=== PATIENT | female | born 1950 | race Two or more races ===

== ENCOUNTER 2019-07-25 20:43 | Inpatient (IN) | payer SELFPAY ==
[~2019-07-25] VITALS: Ht 162.6 cm; Wt 66.7 kg
[~2019-07-25 20:43] MED LIST: AMLO5TAB10 PO; ATOR10TA60 PO; LOSA25TA54 PO
[2019-07-25 21:07] LABS: BILIRUBIN,URINE NEGATIVE (NEG); CLARITY,URINE CLEAR; COLOR,URINE YELLOW; NITRITE,URINE NEGATIVE (NEG); PH,URINE 5.5; PROTEIN,URINE >=300 mg/dL (NEG-TRACE); UROBILINOGEN,URINE 0.2 mg/dL (0.2 mg/dL)
[2019-07-25 21:12] LABS: BACTERIA,URINE 0 /HPF (0-FEW); SQUAMOUS EPITHELIAL CELL,UR FEW /LPF
[2019-07-25 21:13] LABS: RBC,URINE OCC /HPF (0-2)
[2019-07-25 21:14] LABS: YEAST,URINE PRESENT /HPF
[2019-07-25 21:26] LABS: BASO # 0.1 x10^3/uL (0.0-0.2); BASO % 1 % (0-3); EOS # 0.1 x10^3/uL (0.0-0.7); EOS % 1 % (0-3); HEMATOCRIT 45.8 % (36.0-47.0); HEMOGLOBIN 15.7 g/dL (12.0-15.5); LYMPH # 1.4 x10^3/uL (1.0-4.8); LYMPH % 12 % (24-48); MEAN CORPUSCULAR HEMOGLOBIN 31 pg (25-35); MEAN CORPUSCULAR HGB CONC 34 g/dL (31-37); MEAN CORPUSCULAR VOLUME 90 fL (79-100); MONO # 0.9 x10^3/uL (0.0-1.1); MONO % 8 % (0-9); NEUT # 8.8 x10^3/uL (1.8-7.7); NEUT % 79 % (31-73); PLATELET COUNT 304 x10^3/uL (140-400); RED BLOOD COUNT 5.12 x10^6/uL (3.50-5.40); RED CELL DISTRIBUTION WIDTH 12.6 % (11.5-14.5); WHITE BLOOD COUNT 11.2 x10^3/uL (4.0-11.0)
[2019-07-25] MEDS ORDERED: NYSTATIN 100,000 UNIT/GM TOPICAL CREAM 15GM TUBE. TP ONE (21:30)
[2019-07-25 21:40] LABS: ALBUMIN 3.2 g/dL (3.4-5.0); ALBUMIN/GLOBULIN RATIO 0.9 (1.0-1.7); CALCIUM 9.6 mg/dL (8.5-10.1); CREATININE 1.1 mg/dL (0.6-1.0); GFR 49.1; POTASSIUM 4.2 mmol/L (3.5-5.1); TOTAL BILIRUBIN 0.3 mg/dL (0.2-1.0); TOTAL PROTEIN 6.7 g/dL (6.4-8.2)
[2019-07-25] MEDS ORDERED: INSULIN REGULAR 100 UNIT/ML 3ML VIAL. IV ONE (22:15)
[2019-07-25] MEDS ORDERED: IV NORMAL SALINE 1000ML BAG 1,000 ML IV ONE (22:15)
--- NOTE | 2019-07-25 23:58 | PHYS DOC ---
Past Medical History Past Medical History: Diabetes-Type II, High Cholesterol, Hypertension Past Surgical History: Pacemaker, Other Additional Past Surgical Histo: left ankle surgery Alcohol Use: None Drug Use: None Adult General Chief Complaint Chief Complaint: PELVIC PAIN HPI HPI Patient is a 69-year-old female who presents with report of pain in her lower abdomen, stating that she has had a rash in her pelvic region for the last several days. Patient does indicate that she is a diabetic and is not on any insulin. She does not have a primary care doctor and she is not sure how high her blood sugars have been running. She denies any chest pain or shortness of breath. She also denies any fever. She rates the pain in her lower abdomen as moderate. She denies any nausea, vomiting or diarrhea.[] Review of Systems Review of Systems Constitutional: Denies fever or chills [] Respiratory: Denies cough or shortness of breath [] Cardiovascular: No additional information not addressed in HPI [] GI: Denies abdominal pain, nausea, vomiting or diarrhea [] Integument: Positive rash in the lower abdomen/pelvic region[] Neurologic: Denies headache, focal weakness or sensory changes [] All other systems were reviewed and found to be within normal limits, except as documented in this note. Current Medications Current Medications Current Medications Medications (Trade) Dose Ordered Sig/Gracy Start Time Stop Time Status Last Admin Dose Admin Insulin Human Regular (HumuLIN R VIAL) 15 unit 1X ONCE 07/25/19 22:15 07/25/19 22:16 DC 07/25/19 22:22 15 UNIT Nystatin (Mycostatin) 1 gregor 1X ONCE 07/25/19 21:30 07/25/19 21:31 DC 07/25/19 21:45 1 GREGOR Sodium Chloride 1,000 ml @ 1,000 mls/hr 1X ONCE 07/25/19 22:15 07/25/19 23:14 DC 07/25/19 22:21 1,000 MLS/HR Allergies Allergies Allergies Coded Allergies Type Severity Reaction Last Updated Verified No Known Drug Allergies 11/22/13 No Physical Exam Physical Exam Constitutional: Well developed, well nourished, no acute distress, non-toxic appearance. [] HENT: Normocephalic, atraumatic, bilateral external ears normal, oropharynx moist, no oral exudates, nose normal. [] Eyes: PERRLA, EOMI, conjunctiva normal, no discharge. [] Neck: Normal range of motion, no tenderness, supple, no stridor. [] Cardiovascular: Regular rate and rhythm[] Lungs & Thorax: Bilateral breath sounds clear to auscultation [] Abdomen: Bowel sounds normal, soft, with erythematous rash in the skin fold of the lower abdomen and pelvic region with numerous excoriations, consistent with cutaneous candidal infection. [] Skin: Warm, dry. [] Extremities: No tenderness, no cyanosis, no clubbing, ROM intact, no edema. [] Neurologic: Alert and oriented X 3, no focal deficits noted. [] Current Patient Data Vital Signs Vital Signs Date Time Temp Pulse Resp B/P (MAP) Pulse Ox O2 Delivery O2 Flow Rate FiO2 07/25/19 23:00 82 17 156/78 (104) 97 Room Air 07/25/19 20:50 98.1 98.1 Lab Values Laboratory Tests Test 07/25/19 20:48 07/25/19 21:10 Urine Collection Type Unknown Urine Color Yellow Urine Clarity Clear Urine pH 5.5 Urine Specific [place] >=1.030 Urine Protein >=300 mg/dL (NEG-TRACE) Urine Glucose (UA) >=1000 mg/dL (NEG) Urine Ketones (Stick) Negative mg/dL (NEG) Urine Blood Negative (NEG) Urine Nitrite Negative (NEG) Urine Bilirubin Negative (NEG) Urine Urobilinogen Dipstick 0.2 mg/dL (0.2 mg/dL) Urine Leukocyte Esterase Negative (NEG) Urine RBC Occ /HPF (0-2) Urine WBC 5-10 /HPF (0-4) Urine Squamous Epithelial Cells Few /LPF Urine Bacteria 0 /HPF (0-FEW) Urine Yeast Present /HPF White Blood Count 11.2 x10^3/uL (4.0-11.0) H Red Blood Count 5.12 x10^6/uL (3.50-5.40) Hemoglobin 15.7 g/dL (12.0-15.5) H Hematocrit 45.8 % (36.0-47.0) Mean Corpuscular Volume 90 fL (79-100) Mean Corpuscular Hemoglobin 31 pg (25-35) Mean Corpuscular Hemoglobin Concent 34 g/dL (31-37) Red Cell Distribution Width 12.6 % (11.5-14.5) Platelet Count 304 x10^3/uL (140-400) Neutrophils (%) (Auto) 79 % (31-73) H Lymphocytes (%) (Auto) 12 % (24-48) L Monocytes (%) (Auto) 8 % (0-9) Eosinophils (%) (Auto) 1 % (0-3) Basophils (%) (Auto) 1 % (0-3) Neutrophils # (Auto) 8.8 x10^3/uL (1.8-7.7) H Lymphocytes # (Auto) 1.4 x10^3/uL (1.0-4.8) Monocytes # (Auto) 0.9 x10^3/uL (0.0-1.1) Eosinophils # (Auto) 0.1 x10^3/uL (0.0-0.7) Basophils # (Auto) 0.1 x10^3/uL (0.0-0.2) Sodium Level 134 mmol/L (136-145) L Potassium Level 4.2 mmol/L (3.5-5.1) Chloride Level 96 mmol/L (98-107) L Carbon Dioxide Level 29 mmol/L (21-32) Anion Gap 9 (6-14) Blood Urea Nitrogen 21 mg/dL (7-20) H Creatinine 1.1 mg/dL (0.6-1.0) H Estimated GFR (Cockcroft-Gault) 49.1 BUN/Creatinine Ratio 19 (6-20) Glucose Level 643 mg/dL (70-99) *H Calcium Level 9.6 mg/dL (8.5-10.1) Total Bilirubin 0.3 mg/dL (0.2-1.0) Aspartate Amino Transferase (AST) 9 U/L (15-37) L Alanine Aminotransferase (ALT) 14 U/L (14-59) Alkaline Phosphatase 181 U/L (46-116) H Total Protein 6.7 g/dL (6.4-8.2) Albumin 3.2 g/dL (3.4-5.0) L Albumin/Globulin Ratio 0.9 (1.0-1.7) L Laboratory Tests 07/25/19 21:10 Laboratory Tests 07/25/19 21:10 EKG EKG [] Radiology/Procedures Radiology/Procedures [] Course & Med Decision Making Course & Med Decision Making Pertinent Labs and Imaging studies reviewed. (See chart for details) [] Dragon Disclaimer Dragon Disclaimer This electronic medical record was generated, in whole or in part, using a voice recognition dictation system. Departure Departure Impression: Primary Impression: Uncontrolled type II diabetes mellitus Additional Impression: Cutaneous candidiasis Disposition: ADMITTED INPATIENT Admitting Physician: MARIE (Dr. Daigle) Condition: IMPROVED Referrals: NO PCP (PCP) Problem Qualifiers Primary Impression: Uncontrolled type II diabetes mellitus Glycemic state: with hyperglycemia Qualified Codes: E11.65 - Type 2 diabetes mellitus with hyperglycemia GENEVIEVE THIBODEAUX Jr. DO Jul 25, 2019 23:58
[2019-07-26] VITALS (7 sets, daily range): BP systolic 141–153; BP diastolic 68–83
[2019-07-26] MEDS ORDERED: ONDANSETRON PF 4 MG/2 ML VIAL. IV PRN
[2019-07-26] MEDS ORDERED: MORPHINE SULFATE 2 MG/ML VIAL. IV PRN
[2019-07-26] MEDS ORDERED: IV NORMAL SALINE 1000ML BAG 1,000 ML IV SCH (00:30)
[2019-07-26 07:08] LABS: BASO # 0.1 x10^3/uL (0.0-0.2); BASO % 1 % (0-3); EOS # 0.2 x10^3/uL (0.0-0.7); EOS % 2 % (0-3); HEMATOCRIT 40.6 % (36.0-47.0); LYMPH # 1.9 x10^3/uL (1.0-4.8); LYMPH % 21 % (24-48); MEAN CORPUSCULAR HEMOGLOBIN 31 pg (25-35); MEAN CORPUSCULAR HGB CONC 35 g/dL (31-37); MEAN CORPUSCULAR VOLUME 89 fL (79-100); MONO # 0.8 x10^3/uL (0.0-1.1); MONO % 8 % (0-9); NEUT # 6.4 x10^3/uL (1.8-7.7); NEUT % 69 % (31-73); PLATELET COUNT 272 x10^3/uL (140-400); RED BLOOD COUNT 4.56 x10^6/uL (3.50-5.40); RED CELL DISTRIBUTION WIDTH 12.8 % (11.5-14.5); WHITE BLOOD COUNT 9.3 x10^3/uL (4.0-11.0)
[2019-07-26 07:25] LABS: CALCIUM 8.5 mg/dL (8.5-10.1); CREATININE 0.7 mg/dL (0.6-1.0); GFR 82.7; POTASSIUM 3.4 mmol/L (3.5-5.1)
[2019-07-26] MEDS ORDERED: FLU VAX QS 2019-20 (36MOS+)/PF 0.5 ML SYRINGE. VAX IM ONE (09:00)
[2019-07-26] MEDS ORDERED: POTASSIUM CHLORIDE 20 MEQ TABLET.ER. PO ONE (09:00)
--- NOTE | 2019-07-26 09:01 | PDOC1 ---
History and Physical Date of Admission Date of Admission DATE: 07/26/19 TIME: 08:57 History of Present Illness History of Present Illness Ms Ash is a 69-year-old female italian-speaking only w/ PMHx PPM, Diabetes- Type II, High Cholesterol, Hypertension who presents with report of pain in her lower abdomen, stating that she has had a rash in her pelvic region for the last several days. Tablet Technician phone utilized [employer] [phone]. Patient and product safety engineer had to repeat themselves frequently. Patient unclear about whether she knows about diabetes as a diagnosis or not and is asking to go home. Glucose was 643. WBC 11.2. Cr 1.1. She denies any chest pain or shortness of breath. She also denies any fever. She rates the pain in her lower abdomen as moderate. She denies any nausea, vomiting or diarrhea Past Medical History Cardiovascular: CAD, HTN, Hyperlipidemia Psych: Depression Past Surgical History Past Surgical History: Hysterectomy Family History Family History: Diabetes, High Cholestrol, Hypertension Social History Smoke: No ALCOHOL: none Drugs: None Current Problem List Problem List Problems Medical Problems: (1) Cutaneous candidiasis Status: Acute (2) Uncontrolled type II diabetes mellitus Status: Acute Current Medications Current Medications Current Medications Nystatin (Mycostatin) 1 gregor 1X ONCE TP Last administered on 07/25/19at 21:45; Start 07/25/19 at 21:30; Stop 07/25/19 at 21:31; Status DC Insulin Human Regular (HumuLIN R VIAL) 15 unit 1X ONCE IV Last administered on 07/25/19at 22:22; Start 07/25/19 at 22:15; Stop 07/25/19 at 22:16; Status DC Sodium Chloride 1,000 ml @ 1,000 mls/hr 1X ONCE IV Last administered on 07/25/19at 22:21; Start 07/25/19 at 22:15; Stop 07/25/19 at 23:14; Status DC Ondansetron HCl (Zofran) 4 mg PRN Q8HRS PRN IV NAUSEA/VOMITING 1ST CHOICE; Sta rt 07/26/19 at 00:00; Stop 07/26/19 at 23:59 Morphine Sulfate (Morphine Sulfate) 2 mg PRN Q2HR PRN IV SEVERE PAIN 7-10; Start 07/26/19 at 00:00; Stop 07/26/19 at 23:59 Sodium Chloride 1,000 ml @ 125 mls/hr Q8H IV Last administered on 07/26/19at 01:20; Start 07/26/19 at 00:30; Stop 07/26/19 at 00:31; Status DC Influenza Virus Vaccine Quadrival ([place] Quad 2019-20 (3yr Up) Syringe) 0.5 ml ONCE ONCE VAX IM ; Start 07/26/19 at 09:00; Stop 07/26/19 at 09:01 Active Scripts Active Reported Amlodipine Besylate 5 Mg Tablet 5 Mg PO DAILY Atorvastatin Calcium 10 Mg Tablet 10 Mg PO QHS Losartan Potassium (Losartan Potassium) 25 Mg Tablet 25 Mg PO BID Allergies Allergies: Coded Allergies: No Known Drug Allergies (Unverified , 11/22/13) ROS General: No: Chills, Night Sweats, Fatigue, Malaise, Appetite, Other PSYCHOLOGICAL ROS: No: Anxiety, Behavioral Disorder, Concentration difficultie, Decreased libido, Depression, Disorientation, Hallucinations, Hostility, Irritablity, Memory difficulties, Mood Swings, Obsessive thoughts, Physical abuse, Sexual abuse, Sleep disturbances, Suicidal ideation, Other Eyes: No Blurry vision, No Decreased vision, No Double vision, No Dry eyes, No Excessive tearing, No Eye Pain, No Itchy Eyes, No Loss of vision, No Photophobia, No Scotomata, No Uses contacts, No Uses glasses, No Other HEENT: No: Heacaches, Visual Changes, Hearing change, Nasal congestion, Nasal discharge, Oral lesions, Sinus pain, Sore Throat, Epistaxis, Sneezing, Snoring, Tinnitus, Vertigo, Vocal changes, Other ALLERGY AND IMMUNOLOGY: No: Hives, Insect Bite Sensitivity, Itchy/Watery Eyes, Nasal Congestion, Post Nasal Drip, Seasonal Allergies, Other Hematological and Lymphatic: No: Bleeding Problems, Blood Clots, Blood Transfusions, Brusing, Night Sweats, Pallor, Swollen Lymph Nodes, Other ENDOCRINE: No: Breast Changes, Galactorrhea, Hair Pattern Changes, Hot Flashes, Malaise/lethargy, Mood Swings, Palpitations, Polydipsia/polyuria, Skin Changes, Temperature Intolerance, Unexpected Weight Changes, Other Breast: No New/Changing Breast Lumps, No Nipple changes, No Nipple discharge, No Other Respiratory: No: Cough, Hemoptysis, Orthopnea, Pleuritic Pain, Shortness of breath, SOB with excertion, Sputum Changes, Stridor, Tachypnea, Wheezing, Other Cardiovascular: No Chest Pain, No Palpitations, No Orthopnea, No Paroxysmal Noc. Dyspnea, No Edema, No Lt Headedness, No Other Gastrointestinal: Yes Nausea, Yes Abdominal Pain; No Vomiting, No Diarrhea, No Constipation, No Melena, No Hematochezia, No Other Genitourinary: YES Frequency; No Dysuria, No Incontinence, No Hematuria, No Retention, No Discharge, No Urgency, No Pain, No Flank Pain, No Other, No , No , No , No , No , No , No Musculoskeletal: No Gait Disturbance, No Joint Pain, No Joint Stiffness, No Joint Swelling, No Muscle Pain, No Muscular Weakness, No Pain In:, No Swelling In:, No Other Neurological: No Behavorial Changes, No Bowel/Bladder ControlChng, No Confusion, No Dizziness, No Gait Disturbance, No Headaches, No Impaired Coord/balance, No Memory Loss, No Numbness/Tingling, No Seizures, No Speech Problems, No Tremors, No Visual Changes, No Weakness, No Other Skin: No Dry Skin, No Eczema, No Hair Changes, No Lumps, No Mole Changes, No Mottling, No Nail Changes, No Pruritus, No Rash, No Skin Lesion Changes, No Other, No Acne Physical Exam General: Alert, Oriented X3, Cooperative, No acute distress HEENT: Atraumatic, PERRLA, EOMI, Mucous membr. moist/pink Lungs: Clear to auscultation, Normal air movement Heart: S1S2, RRR, no gallops, no murmurs Abdomen: Normal bowel sounds, Soft, No tenderness, No hepatosplenomegaly, No masses, Other (Intertrigo) Rectal Exam: not examined Extremities: No clubbing, No cyanosis, No edema, Normal pulses, No tenderness/swelling Skin: No significant lesion, Other (Groin and pannicular) Neuro: Normal gait, Normal speech, Strength at 5/5 X4 ext, Normal tone, Sensation intact, Cranial nerves 3-12 NL, Reflexes 2+ Psych/Mental Status: Mental status NL, Mood NL Vitals Vitals Vital Signs Date Time Temp Pulse Resp B/P (MAP) Pulse Ox O2 Delivery O2 Flow Rate FiO2 07/26/19 07:00 98.0 79 18 153/71 (98) 95 Room Air 98.0 Labs Labs Laboratory Tests Test 07/25/19 20:48 07/25/19 21:10 07/25/19 23:45 07/26/19 05:19 Urine Collection Type Unknown Urine Color Yellow Urine Clarity Clear Urine pH 5.5 Urine Specific [place] >=1.030 Urine Protein >=300 mg/dL (NEG-TRACE) Urine Glucose (UA) >=1000 mg/dL (NEG) Urine Ketones (Stick) Negative mg/dL (NEG) Urine Blood Negative (NEG) Urine Nitrite Negative (NEG) Urine Bilirubin Negative (NEG) Urine Urobilinogen Dipstick 0.2 mg/dL (0.2 mg/dL) Urine Leukocyte Esterase Negative (NEG) Urine RBC Occ /HPF (0-2) Urine WBC 5-10 /HPF (0-4) Urine Squamous Epithelial Cells Few /LPF Urine Bacteria 0 /HPF (0-FEW) Urine Yeast Present /HPF White Blood Count 11.2 x10^3/uL (4.0-11.0) 9.3 x10^3/uL (4.0-11.0) Red Blood Count 5.12 x10^6/uL (3.50-5.40) 4.56 x10^6/uL (3.50-5.40) Hemoglobin 15.7 g/dL (12.0-15.5) 14.0 g/dL (12.0-15.5) Hematocrit 45.8 % (36.0-47.0) 40.6 % (36.0-47.0) Mean Corpuscular Volume 90 fL (79-100) 89 fL (79-100) Mean Corpuscular Hemoglobin 31 pg (25-35) 31 pg (25-35) Mean Corpuscular Hemoglobin Concent 34 g/dL (31-37) 35 g/dL (31-37) Red Cell Distribution Width 12.6 % (11.5-14.5) 12.8 % (11.5-14.5) Platelet Count 304 x10^3/uL (140-400) 272 x10^3/uL (140-400) Neutrophils (%) (Auto) 79 % (31-73) 69 % (31-73) Lymphocytes (%) (Auto) 12 % (24-48) 21 % (24-48) Monocytes (%) (Auto) 8 % (0-9) 8 % (0-9) Eosinophils (%) (Auto) 1 % (0-3) 2 % (0-3) Basophils (%) (Auto) 1 % (0-3) 1 % (0-3) Neutrophils # (Auto) 8.8 x10^3/uL (1.8-7.7) 6.4 x10^3/uL (1.8-7.7) Lymphocytes # (Auto) 1.4 x10^3/uL (1.0-4.8) 1.9 x10^3/uL (1.0-4.8) Monocytes # (Auto) 0.9 x10^3/uL (0.0-1.1) 0.8 x10^3/uL (0.0-1.1) Eosinophils # (Auto) 0.1 x10^3/uL (0.0-0.7) 0.2 x10^3/uL (0.0-0.7) Basophils # (Auto) 0.1 x10^3/uL (0.0-0.2) 0.1 x10^3/uL (0.0-0.2) Sodium Level 134 mmol/L (136-145) 142 mmol/L (136-145) Potassium Level 4.2 mmol/L (3.5-5.1) 3.4 mmol/L (3.5-5.1) Chloride Level 96 mmol/L (98-107) 108 mmol/L (98-107) Carbon Dioxide Level 29 mmol/L (21-32) 30 mmol/L (21-32) Anion Gap 9 (6-14) 4 (6-14) Blood Urea Nitrogen 21 mg/dL (7-20) 17 mg/dL (7-20) Creatinine 1.1 mg/dL (0.6-1.0) 0.7 mg/dL (0.6-1.0) Estimated GFR (Cockcroft-Gault) 49.1 82.7 BUN/Creatinine Ratio 19 (6-20) Glucose Level 643 mg/dL (70-99) 315 mg/dL (70-99) Calcium Level 9.6 mg/dL (8.5-10.1) 8.5 mg/dL (8.5-10.1) Total Bilirubin 0.3 mg/dL (0.2-1.0) Aspartate Amino Transf (AST/SGOT) 9 U/L (15-37) Alanine Aminotransferase (ALT/SGPT) 14 U/L (14-59) Alkaline Phosphatase 181 U/L (46-116) Total Protein 6.7 g/dL (6.4-8.2) Albumin 3.2 g/dL (3.4-5.0) Albumin/Globulin Ratio 0.9 (1.0-1.7) Glucose (Fingerstick) 265 mg/dL (70-99) Test 07/26/19 07:35 Glucose (Fingerstick) 278 mg/dL (70-99) Laboratory Tests Test 07/25/19 20:48 07/25/19 21:10 07/25/19 23:45 07/26/19 05:19 Urine Collection Type Unknown Urine Color Yellow Urine Clarity Clear Urine pH 5.5 Urine Specific [place] >=1.030 Urine Protein >=300 mg/dL (NEG-TRACE) Urine Glucose (UA) >=1000 mg/dL (NEG) Urine Ketones (Stick) Negative mg/dL (NEG) Urine Blood Negative (NEG) Urine Nitrite Negative (NEG) Urine Bilirubin Negative (NEG) Urine Urobilinogen Dipstick 0.2 mg/dL (0.2 mg/dL) Urine Leukocyte Esterase Negative (NEG) Urine RBC Occ /HPF (0-2) Urine WBC 5-10 /HPF (0-4) Urine Squamous Epithelial Cells Few /LPF Urine Bacteria 0 /HPF (0-FEW) Urine Yeast Present /HPF White Blood Count 11.2 x10^3/uL (4.0-11.0) 9.3 x10^3/uL (4.0-11.0) Red Blood Count 5.12 x10^6/uL (3.50-5.40) 4.56 x10^6/uL (3.50-5.40) Hemoglobin 15.7 g/dL (12.0-15.5) 14.0 g/dL (12.0-15.5) Hematocrit 45.8 % (36.0-47.0) 40.6 % (36.0-47.0) Mean Corpuscular Volume 90 fL (79-100) 89 fL (79-100) Mean Corpuscular Hemoglobin 31 pg (25-35) 31 pg (25-35) Mean Corpuscular Hemoglobin Concent 34 g/dL (31-37) 35 g/dL (31-37) Red Cell Distribution Width 12.6 % (11.5-14.5) 12.8 % (11.5-14.5) Platelet Count 304 x10^3/uL (140-400) 272 x10^3/uL (140-400) Neutrophils (%) (Auto) 79 % (31-73) 69 % (31-73) Lymphocytes (%) (Auto) 12 % (24-48) 21 % (24-48) Monocytes (%) (Auto) 8 % (0-9) 8 % (0-9) Eosinophils (%) (Auto) 1 % (0-3) 2 % (0-3) Basophils (%) (Auto) 1 % (0-3) 1 % (0-3) Neutrophils # (Auto) 8.8 x10^3/uL (1.8-7.7) 6.4 x10^3/uL (1.8-7.7) Lymphocytes # (Auto) 1.4 x10^3/uL (1.0-4.8) 1.9 x10^3/uL (1.0-4.8) Monocytes # (Auto) 0.9 x10^3/uL (0.0-1.1) 0.8 x10^3/uL (0.0-1.1) Eosinophils # (Auto) 0.1 x10^3/uL (0.0-0.7) 0.2 x10^3/uL (0.0-0.7) Basophils # (Auto) 0.1 x10^3/uL (0.0-0.2) 0.1 x10^3/uL (0.0-0.2) Sodium Level 134 mmol/L (136-145) 142 mmol/L (136-145) Potassium Level 4.2 mmol/L (3.5-5.1) 3.4 mmol/L (3.5-5.1) Chloride Level 96 mmol/L (98-107) 108 mmol/L (98-107) Carbon Dioxide Level 29 mmol/L (21-32) 30 mmol/L (21-32) Anion Gap 9 (6-14) 4 (6-14) Blood Urea Nitrogen 21 mg/dL (7-20) 17 mg/dL (7-20) Creatinine 1.1 mg/dL (0.6-1.0) 0.7 mg/dL (0.6-1.0) Estimated GFR (Cockcroft-Gault) 49.1 82.7 BUN/Creatinine Ratio 19 (6-20) Glucose Level 643 mg/dL (70-99) 315 mg/dL (70-99) Calcium Level 9.6 mg/dL (8.5-10.1) 8.5 mg/dL (8.5-10.1) Total Bilirubin 0.3 mg/dL (0.2-1.0) Aspartate Amino Transf (AST/SGOT) 9 U/L (15-37) Alanine Aminotransferase (ALT/SGPT) 14 U/L (14-59) Alkaline Phosphatase 181 U/L (46-116) Total Protein 6.7 g/dL (6.4-8.2) Albumin 3.2 g/dL (3.4-5.0) Albumin/Globulin Ratio 0.9 (1.0-1.7) Glucose (Fingerstick) 265 mg/dL (70-99) Test 07/26/19 07:35 Glucose (Fingerstick) 278 mg/dL (70-99) VTE Prophylaxis Ordered VTE Prophylaxis Devices: Yes VTE Pharmacological Prophylaxi: Yes Assessment/Plan Assessment/Plan A/P: Abdominal pain - this is intertrigo with possible mild associated cellulitis. Will give doxycycline. Topical nystatin and 1x IV diflucan Abdominal cellulitis - will treat as above Hyperglycemia - with type 2 diabetes. She is not taking anything for this and having difficulty with product safety engineer as she states she does not have diabetes. Basal bolus plus insulin while in house Sick sinus syndrome s/p PPM - noted historically, no cardiac issues currently High Cholesterol - will cont statin, goal LDL < 70mg/dL Hypertension - will treat FEN - ADA diet PPX - lovenox FULL CODE Dispo - inpatient for acute abdominal wall cellulitis. May be able to d/c in next 24-48 hours JEFF HORNER MD Jul 26, 2019 09:01
[2019-07-26] MEDS ORDERED: DEXTROSE 50% 25 GM / 50ML DISP.SYRIN. IV PRN (10:00)
[2019-07-26] MEDS: LOSARTAN POTASSIUM 25 MG TABLET. PO SCH ×2 (10:38→23:36)
[2019-07-26] MEDS: amLODIPine BESYLATE 5 MG TABLET PO SCH (10:38)
[2019-07-26] MEDS: NYSTATIN 100,000 UNIT/GM TOPICAL CREAM 15GM TUBE. TP SCH ×2 (12:06→23:37)
[2019-07-26] MEDS: INSULIN LISPRO 300 UNITS/3 ML VIAL. SQ SCH ×4 (12:14→17:08)
[2019-07-26] MEDS ORDERED: FLUCONAZOLE 200MG/100ML PREMIX 100 ML IV SCH (13:00)
[2019-07-26] MEDS: DOXYCYCLINE HYCLATE 100 MG TABLET PO SCH (17:06)
[2019-07-26] MEDS ORDERED: ATORVASTATIN CALCIUM 10 MG TABLET. PO SCH (21:00)
[2019-07-26] MEDS ORDERED: INSULIN GLARGINE SYRINGE. SQ SCH (21:00)
[2019-07-27 00:11] LABS: HEMOGLOBIN A1C 11.6 % (4.8-5.6)
[2019-07-27] MEDS ORDERED: HYDROcodone/APAP 5/325MG 1 TAB TABLET PO PRN (01:30)
[2019-07-27] MEDS: NYSTATIN TOPICAL POWDER 15GM BOTTLE. TP PRN ×2 (02:07→10:13)
[2019-07-27 03:00] VITALS: BP 141/65
[2019-07-27 05:05] LABS: CALCIUM 8.7 mg/dL (8.5-10.1); CREATININE 0.7 mg/dL (0.6-1.0); GFR 82.7; POTASSIUM 3.8 mmol/L (3.5-5.1)
[2019-07-27 07:00] VITALS: BP 151/69
[2019-07-27] MEDS ORDERED: GLYB1TAB18 PO (08:08)
[2019-07-27] MEDS ORDERED: INSU100V8 SQ (08:08)
[2019-07-27] MEDS ORDERED: NYST60PO TP (08:08)
--- NOTE | 2019-07-27 10:08 | PDOC3 ---
Discharge Summary Visit Information Date of Admission: Jul 26, 2019 Date of Discharge: Jul 27, 2019 Admitting Diagnosis Comment: dm2 unconrolled, HONK with no coma, hgba1c 11 Intertriginous rash, lower abd sec to bad DM, uncontrolled Mild to mod cellulitis re above Self pay language barrier Final Diagnosis Problems Medical Problems: (1) Cutaneous candidiasis Status: Acute (2) Uncontrolled type II diabetes mellitus Status: Acute Brief Hospital Course Allergies Allergies Coded Allergies Type Severity Reaction Last Updated Verified No Known Drug Allergies 11/22/13 No Vital Signs Vital Signs Date Time Temp Pulse Resp B/P (MAP) Pulse Ox O2 Delivery O2 Flow Rate FiO2 07/27/19 07:00 97.5 68 18 151/69 (96) 96 Room Air 97.5 Lab Results Laboratory Tests Test 07/25/19 20:48 07/25/19 21:10 07/25/19 23:45 07/26/19 05:19 Urine Collection Type Unknown Urine Color Yellow Urine Clarity Clear Urine pH 5.5 Urine Specific [place] >=1.030 Urine Protein >=300 mg/dL (NEG-TRACE) Urine Glucose (UA) >=1000 mg/dL (NEG) Urine Ketones (Stick) Negative mg/dL (NEG) Urine Blood Negative (NEG) Urine Nitrite Negative (NEG) Urine Bilirubin Negative (NEG) Urine Urobilinogen Dipstick 0.2 mg/dL (0.2 mg/dL) Urine Leukocyte Esterase Negative (NEG) Urine RBC Occ /HPF (0-2) Urine WBC 5-10 /HPF (0-4) Urine Squamous Epithelial Cells Few /LPF Urine Bacteria 0 /HPF (0-FEW) Urine Yeast Present /HPF White Blood Count 11.2 x10^3/uL (4.0-11.0) 9.3 x10^3/uL (4.0-11.0) Red Blood Count 5.12 x10^6/uL (3.50-5.40) 4.56 x10^6/uL (3.50-5.40) Hemoglobin 15.7 g/dL (12.0-15.5) 14.0 g/dL (12.0-15.5) Hematocrit 45.8 % (36.0-47.0) 40.6 % (36.0-47.0) Mean Corpuscular Volume 90 fL (79-100) 89 fL (79-100) Mean Corpuscular Hemoglobin 31 pg (25-35) 31 pg (25-35) Mean Corpuscular Hemoglobin Concent 34 g/dL (31-37) 35 g/dL (31-37) Red Cell Distribution Width 12.6 % (11.5-14.5) 12.8 % (11.5-14.5) Platelet Count 304 x10^3/uL (140-400) 272 x10^3/uL (140-400) Neutrophils (%) (Auto) 79 % (31-73) 69 % (31-73) Lymphocytes (%) (Auto) 12 % (24-48) 21 % (24-48) Monocytes (%) (Auto) 8 % (0-9) 8 % (0-9) Eosinophils (%) (Auto) 1 % (0-3) 2 % (0-3) Basophils (%) (Auto) 1 % (0-3) 1 % (0-3) Neutrophils # (Auto) 8.8 x10^3/uL (1.8-7.7) 6.4 x10^3/uL (1.8-7.7) Lymphocytes # (Auto) 1.4 x10^3/uL (1.0-4.8) 1.9 x10^3/uL (1.0-4.8) Monocytes # (Auto) 0.9 x10^3/uL (0.0-1.1) 0.8 x10^3/uL (0.0-1.1) Eosinophils # (Auto) 0.1 x10^3/uL (0.0-0.7) 0.2 x10^3/uL (0.0-0.7) Basophils # (Auto) 0.1 x10^3/uL (0.0-0.2) 0.1 x10^3/uL (0.0-0.2) Sodium Level 134 mmol/L (136-145) 142 mmol/L (136-145) Potassium Level 4.2 mmol/L (3.5-5.1) 3.4 mmol/L (3.5-5.1) Chloride Level 96 mmol/L (98-107) 108 mmol/L (98-107) Carbon Dioxide Level 29 mmol/L (21-32) 30 mmol/L (21-32) Anion Gap 9 (6-14) 4 (6-14) Blood Urea Nitrogen 21 mg/dL (7-20) 17 mg/dL (7-20) Creatinine 1.1 mg/dL (0.6-1.0) 0.7 mg/dL (0.6-1.0) Estimated GFR (Cockcroft-Gault) 49.1 82.7 BUN/Creatinine Ratio 19 (6-20) Glucose Level 643 mg/dL (70-99) 315 mg/dL (70-99) Calcium Level 9.6 mg/dL (8.5-10.1) 8.5 mg/dL (8.5-10.1) Total Bilirubin 0.3 mg/dL (0.2-1.0) Aspartate Amino Transf (AST/SGOT) 9 U/L (15-37) Alanine Aminotransferase (ALT/SGPT) 14 U/L (14-59) Alkaline Phosphatase 181 U/L (46-116) Total Protein 6.7 g/dL (6.4-8.2) Albumin 3.2 g/dL (3.4-5.0) Albumin/Globulin Ratio 0.9 (1.0-1.7) Glucose (Fingerstick) 265 mg/dL (70-99) Hemoglobin A1c 11.6 % (4.8-5.6) Test 07/26/19 07:35 07/26/19 11:10 07/26/19 16:15 07/26/19 21:21 Glucose (Fingerstick) 278 mg/dL (70-99) 274 mg/dL (70-99) 105 mg/dL (70-99) 221 mg/dL (70-99) Test 07/27/19 04:00 07/27/19 08:04 Sodium Level 142 mmol/L (136-145) Potassium Level 3.8 mmol/L (3.5-5.1) Chloride Level 106 mmol/L (98-107) Carbon Dioxide Level 31 mmol/L (21-32) Anion Gap 5 (6-14) Blood Urea Nitrogen 17 mg/dL (7-20) Creatinine 0.7 mg/dL (0.6-1.0) Estimated GFR (Cockcroft-Gault) 82.7 Glucose Level 240 mg/dL (70-99) Calcium Level 8.7 mg/dL (8.5-10.1) Glucose (Fingerstick) 197 mg/dL (70-99) Laboratory Tests Test 07/26/19 11:10 07/26/19 16:15 07/26/19 21:21 07/27/19 04:00 Glucose (Fingerstick) 274 mg/dL (70-99) 105 mg/dL (70-99) 221 mg/dL (70-99) Sodium Level 142 mmol/L (136-145) Potassium Level 3.8 mmol/L (3.5-5.1) Chloride Level 106 mmol/L (98-107) Carbon Dioxide Level 31 mmol/L (21-32) Anion Gap 5 (6-14) Blood Urea Nitrogen 17 mg/dL (7-20) Creatinine 0.7 mg/dL (0.6-1.0) Estimated GFR (Cockcroft-Gault) 82.7 Glucose Level 240 mg/dL (70-99) Calcium Level 8.7 mg/dL (8.5-10.1) Test 07/27/19 08:04 Glucose (Fingerstick) 197 mg/dL (70-99) Brief Hospital Course Ms. Ash is a 69 old kinyarwanda speaking only female, admitted for BAd DM uncontrolled, hgba1c 11, and had a red rash infraumbilical area, colleage has started diflucan IV< She has no contraindications for oHA, she cant tell me names of her pills, NOT on insulin at home, self pay with no PCP, I gave her referral kelley KANG and wrote for metformin and glyburide 1 tab BID ans lantus 10 units qhs,. I did all these with judo instructor on phone, gave PO diflucan BID x 7 days and OTC bacitracin, MAybe i will also give kefflex BID x 7 days for the cellulitis NO consults, no proc done dc 36 mins Discharge Information Condition at Discharge: Improved, Stable Disposition/Orders: D/C to Home Scheduled Amlodipine Besylate (Amlodipine Besylate) 5 Mg Tablet, 5 MG PO DAILY, (Reported) Entered as Reported by: Cathy Rojo on 11/22/13 1231 Last Taken: Unknown Dose on Unknown Date & Time Last Action: Continued on 07/26/19 0954 by JEFF HORNER MD Atorvastatin Calcium (Atorvastatin Calcium) 10 Mg Tablet, 10 MG PO QHS, (Reported) Entered as Reported by: Cathy Rojo on 11/22/13 1230 Last Taken: Unknown Dose on Unknown Date & Time Last Action: Continued on 07/26/19953 by JEFF HORNER MD Glyburide/Metformin Hcl (Glyburide-Metformin 2.5-500 Mg) 1 Each Tablet, 1 EACH PO BID for sm 2 for 60 Days, #120 Prescribed by: AICHA DRUMMOND on 07/27/19 08 Insulin Glargine,Hum.rec.anlog (Lantus) 100 Unit/1 Ml Vial, 10 UNIT SQ QHS for dm 2 hgba1c 11 for 30 Days Prescribed by: AICHA DRUMMOND on 07/27/19807 Losartan Potassium (Losartan Potassium ) 25 Mg Tablet, 25 MG PO BID, (Reported) Entered as Reported by: Cathy Rojo on 11/22/13 1228 Last Taken: Unknown Dose on Unknown Date & Time Last Action: Continued on 07/26/19953 by JEFF HORNER MD Scheduled PRN Nystatin (Nystop) 60 Gm Powder, 1 GABE TP BID PRN for RASH for 30 Days Prescribed by: AICHA DRUMMOND on 07/27/19807 AICHA DRUMMOND MD Jul 27, 2019 10:08
[2019-07-27] MEDS: LOSARTAN POTASSIUM 25 MG TABLET. PO SCH (10:13)
[2019-07-27] MEDS: DOXYCYCLINE HYCLATE 100 MG TABLET PO SCH (10:13)
[2019-07-27] MEDS: NYSTATIN 100,000 UNIT/GM TOPICAL CREAM 15GM TUBE. TP SCH (10:13)
[2019-07-27] MEDS: amLODIPine BESYLATE 5 MG TABLET PO SCH (10:13)
[2019-07-27] MEDS: INSULIN LISPRO 300 UNITS/3 ML VIAL. SQ SCH ×2 (10:24→10:25)
[2019-07-27 11:00] VITALS: BP 151/69
--- NOTE | 2019-07-27 12:16 | NUR ---
pt discharged home with daughter after both watched diabetic education video in maldivian. questions answered regarding checking blood sugars, proper diet, insulin injection, and foot care. daughter v/u. pt stable upon dc. IV removed with cath intact.
== END 2019-07-27 12:00 | disposition home or self-care (01) | DRG 602 ==
LOC: ER 20:43 → 5 SOUTH 23:20
PROVIDERS: ADMIT Internal Medicine; ATTEND Internal Medicine
DX: L03.311 Cellulitis of abdominal wall (principal); E11.00 Type 2 diabetes mellitus with hyperosmolarity without nonketotic hyperglycemic-hyperosmolar coma (NKHHC); B37.2 Candidiasis of skin and nail; E78.00 Pure hypercholesterolemia, unspecified; E78.5 Hyperlipidemia, unspecified; I10 Essential (primary) hypertension; I25.10 Atherosclerotic heart disease of native coronary artery without angina pectoris; I49.5 Sick sinus syndrome; F32.9 Major depressive disorder, single episode, unspecified; L30.4 Erythema intertrigo; Z79.4 Long term (current) use of insulin; Z82.49 Family history of ischemic heart disease and other diseases of the circulatory system; Z90.710 Acquired absence of both cervix and uterus; Z95.0 Presence of cardiac pacemaker; Z83.3 Family history of diabetes mellitus
CPT/HCPCS: 36415; 80048; 80053; 81001; 82962; 83036; 85025; 87086; 90471; 90686; 96361; 96374; J1450; J1815; J7030; 99285-25; G0378